=== PATIENT | male | born 1975 | race Caucasian/White ===

== ENCOUNTER 2017-07-29 12:21 | Emergency (ER) | payer OTHER ==
[~2017-07-29] VITALS: Ht 175.3 cm; Wt 75.0 kg
[2017-07-29] MEDS ORDERED: QUET25TA PO (12:30)
[2017-07-29] MEDS ORDERED: CLON0.5T PO (12:30)
[2017-07-29] MEDS ORDERED: CITA10TA16 PO (12:30)
[2017-07-29 15:28] LABS: BASOPHILS % 1.1 % (0.0-2.0); EOSINOPHILS % 3.7 % (0.0-5.0); HEMATOCRIT. 45.1 % (42.0-52.0); HEMOGLOBIN. 15.2 g/dL (14.0-18.0); LYMPHOCYTES % 32.5 % (20.0-50.0); MEAN CORPUSCULAR HEMOGLOBIN 31.9 pg (28.0-32.0); MEAN CORPUSCULAR VOLUME 94.5 fL (80.0-94.0); MEAN PLATELET VOLUME 8.4 fl (7.4-10.4); NEUTROPHILS % 53.7 % (40.0-76.0); PLATELET 324 x1000/uL (130-400); RED BLOOD CELL COUNT 4.77 mill/uL (4.7-6.1); RED CELL DISTRIBUTION WIDTH 13.3 % (11.6-14.6)
[2017-07-29 15:31] LABS: CHLORIDE 107 mEq/L (98-107)
[2017-07-29 15:36] LABS: ETHANOL BLOOD < 10 mg/dL
[2017-07-29 17:48] LABS: CLARITY URINE CLEAR (CLEAR); COLOR URINE YELLOW (YELLOW); KETONES URINE NEGATIVE (NEGATIVE); LEUKOCYTE ESTERASE URINE NEGATIVE (NEGATIVE); NITRITE URINE NEGATIVE (NEGATIVE); OCCULT BLOOD URINE NEGATIVE (NEGATIVE); PROTEIN URINE NEGATIVE (NEGATIVE); SPECIFIC GRAVITY URINE 1.015 (1.005-1.030); UROBILINOGEN URINE 0.2 E.U./dL (0.2-1.0)
[2017-07-29 18:04] LABS: *AMPHETAMINES SCREEN URINE NEGATIVE (NEGATIVE); *BARBITURATES SCREEN URINE NEGATIVE (NEGATIVE); *BENZODIAZEPINES SCREEN URINE NEGATIVE (NEGATIVE); *COCAINE SCREEN URINE NEGATIVE (NEGATIVE); CANNABINOID URINE SCREEN PRESUMTIVE POSITIVE (NEGATIVE); METHADONE URINE SCREEN PRESUMTIVE POSITIVE (NEGATIVE); OPIATES URINE SCREEN NEGATIVE (NEGATIVE); PHENCYCLIDINE URINE SCREEN NEGATIVE (NEGATIVE)
[2017-07-30] MEDS ORDERED: QUETIAPINE FUMARATE 100MG TABLET PO SCH (05:00)
[2017-07-30] MEDS ORDERED: LORAZEPAM 1MG TABLET PO ONE ×2 (05:00→22:45)
[2017-07-30] MEDS: QUETIAPINE FUMARATE 100MG TABLET PO SCH (23:22)
[2017-07-31] MEDS ORDERED: QUETIAPINE FUMARATE 100MG TABLET PO SCH (22:15)
[2017-07-31] MEDS ORDERED: LORAZEPAM 1MG TABLET PO ONE (22:15)
[2017-07-31] MEDS ORDERED: QUETIAPINE FUMARATE 100MG TABLET PO NR (22:30)
[2017-07-31] MEDS: QUETIAPINE FUMARATE 100MG TABLET PO SCH (23:15)
[2017-08-01] MEDS ORDERED: FAMOTIDINE 20MG TABLET PO ONE (18:30)
[2017-08-01] MEDS ORDERED: ACETAMINOPHEN 325MG TABLET PO ONE (18:30)
[2017-08-01] MEDS ORDERED: ACETAMINOPHEN 325MG TABLET PO NR (19:00)
[2017-08-01] MEDS ORDERED: FAMOTIDINE 20MG TABLET PO NR (19:00)
[2017-08-02 12:14] VITALS: BP 128/77
[2017-08-02] MEDS ORDERED: QUETIAPINE FUMARATE 100MG TABLET PO ONE (12:15)
[2017-08-02] MEDS ORDERED: QUETIAPINE FUMARATE 100MG TABLET PO SCH (21:00)
== END 2017-08-02 16:31 | disposition home or self-care (01) ==
LOC: ER 12:41
DX: R45.851 Suicidal ideations (principal); F20.9 Schizophrenia, unspecified; G40.909 Epilepsy, unspecified, not intractable, without status epilepticus
CPT/HCPCS: 36415; 80053; 80305; 80307; 80329; 81003; 85025; 99284; G0482